=== PATIENT | male | born 1970 | race Caucasian/White ===

== ENCOUNTER 2018-08-31 11:42 | Emergency (ER) | payer OTHER ==
[~2018-08-31] VITALS: Ht 170.2 cm; Wt 68.2 kg
[~2018-08-31 11:42] MED LIST: CLOB60CR4 TP; PROP80CA PO; RISP1TAB89 PO; SERT20OR PO
[2018-08-31 12:50] VITALS: BP 135/77
== END 2018-08-31 12:52 | disposition home or self-care (01) ==
LOC: EDUNIT# 11:42 → EMS 11:42
DX: F20.9 Schizophrenia, unspecified (principal); F17.210 Nicotine dependence, cigarettes, uncomplicated
CPT/HCPCS: 99406